=== PATIENT | male | born 1980 | race Caucasian/White ===

== ENCOUNTER → 2017-02-12 | Outpatient (CLI) | payer BC, OTHER ==
[2017-02-12 10:09] LABS: BASOPHILS # (AUTO) 0.05 10*3/UL; BASOPHILS % (AUTO) 0.9 % (0-1); EOSINOPHILS # (AUTO) 0.27 10*3/UL; EOSINOPHILS % (AUTO) 4.7 % (0-8); HEMATOCRIT 53.5 % (42.0-52.0); HEMOGLOBIN 17.8 g/dL (14.0-18.0); LYMPHOCYTES # (AUTO) 1.67 10*3/uL; MEAN CORPUSCULAR HGB CONC 33.3 g/dL (33-37); MEAN CORPUSCULAR VOLUME 90.1 FL (80-90); MEAN PLATELET VOLUME 9.7 FL (7.4-12.2); MONOCYTES # (AUTO) 0.69 10*3/UL (0.3-0.8); MONOCYTES % (AUTO) 11.9 % (5-15); NEUTROPHILS % (AUTO) 53.5 % (50-80); RED BLOOD COUNT 5.94 10^6/uL (4.70-6.10)
[2017-02-12 10:17] LABS: PLATELET MORPHOLOGY COMMENT NORMAL MORPHOLOGY (NORM); RBC MORPHOLOGY COMMENT NORMAL MORPHOLOGY (NORM); WBC MORPHOLOGY COMMENT NORMAL MORPHOLOGY (NORM)
== END ==
LOC: LAB 09:46
PROVIDERS: ATTEND Internal Medicine
DX: D75.1 Secondary polycythemia (principal)
CPT/HCPCS: 36415; 85025

== ENCOUNTER → 2017-03-18 | Outpatient (CLI) | payer BC, OTHER | LOC: MOB LAB 14:27 | PROVIDERS: ATTEND Family Medicine | DX: L02.612 Cutaneous abscess of left foot (principal) | CPT/HCPCS: 87070; 87075; 87077; 87186; 87205 ==

== ENCOUNTER 2018-10-16 15:44 | Inpatient (IN) ==
[2018-10-16] MEDS ORDERED: Sodium Chloride 0.9% 1,000 ML PRIMARY IV ONE (15:51)
[2018-10-16] MEDS ORDERED: ASPIRIN 81 MG (BABY) CHEWABLE TABLET PO ONE (15:51)
--- NOTE | 2018-10-16 15:53 | EKG ---
[address] [address] Measurements Intervals [place] Rate: 74 P: 84 LA: 173 QRS: -39 QRSD: 111 T: 37 QT: 367 QTc: 394 Interpretive Statements SINUS RHYTHM LEFT AXIS DEVIATION MODERATE INTRAVENTRICULAR CONDUCTION DELAY Compared to ECG 01/21/2018 14:39:19 Left-axis deviation now present Intraventricular conduction delay now present Indeterminate axis no longer present Electronically Signed On 10-17-18 12:38:28 MST by Marcelo Begum [email or web address]
--- NOTE | 2018-10-16 15:59 | PDOC ---
Chest Pain HPI - General Chief Complaint: Chest Pain Stated Complaint: chest pain/left lung pain Date Seen by Provider: 10/16/18 Time Seen by Provider: 15:45 Source: Patient Exam Limitations: POSITIVE: No limitations Treatment Prior to Arrival: REPORTS: None Nurse's Notes Reviewed & Considered: Yes - History of Present Illness Initial Comments: The patient is a 37-year-old male who presents to the emergency department with left-sided chest pain. He states that he had onset of a pain in his left lower chest that radiates through to his back 2 days ago. This pain is worsened and sharp with taking a deep breath. He states that there has been constant pain to some degree for the past 2 days. He denies any lightheadedness, diaphoresis, cough, nausea or vomiting or any other associated complaints. He states that the pain is better after taking aspirin. He does have a history of heart disease and had a stent placed approximately a year ago for an MRI. He also has a history of blood clots. He has erythrocytosis and is due to have his blood tested tomorrow to see if he needs another therapeutic phlebotomy. - Patient Home Medications Home Medications: Home Medications albuterol sulfate HFA 90 mcg/actuation aerosol inhaler 2 puff INH Q4-6H PRN #1 device 01/03/18 atorvastatin 40 mg tablet 40 mg PO QDAY 01/03/18 Clopidogrel [Plavix] 75 mg PO DAILY 01/21/18 Metoprolol Succinate 25 mg PO BID 01/21/18 aspirin 81 mg tablet,delayed release 81 mg PO QDAY tab 02/10/18 Lisinopril 5 mg PO DAILY 10/16/18 - Patient Allergies Allergies/Adverse Reactions: Allergies Allergy/AdvReac Type Severity Reaction Status Date / Time No Known Allergies Allergy Verified 10/16/18 15:45 Past Medical History - heen HEENT History: Denies History Cardiovascular History: Previous SD, DVTs Additional Cardiovasular History: PT RECENTLY HAD LEFT LEG DVT. 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 Respiratory History: Denies History Gastrointestinal History: Denies History Genitourinary History: Denies History Endocrine History: Denies History Musculoskeletal History: Denies History Prosthesis or Implant: No Additional Musculoskeletal History: LEFT ARM SURGERY AFTER BREAKING IT DURING CHILDHOOD Neurological History: Denies History Blood Disorders: Other (please comment) Additional Blood Disorders History: ERYTHROCYTOSIS Psychiatric History: Denies History Cancer History: Denies History In Past Year Been Physically Harmed or Verbally Threatened: No History of MDRO: No Tobacco Use: Never Smoker Alcohol Use: None Type of alcohol normally used: Beer, Hard Liquor In the Past 12 Months, Have Used or Abuse Any Substance: None Previous Surgical History: Yes Type / Date of Surgery: LEFT ARM A CHILD-REMOVAL OF METAL Significant Family History: No pertinent family hx Past Medical History Reviewed: Reviewed - No Changes ROS - Limitations ROS Limitations: No Limitations Constitution: DENIES: Chills, Fever Cardiovascular: REPORTS: Chest Pain. DENIES: Heart Palpitations, Edema Respiratory: REPORTS: Hurts To Breathe. DENIES: Cough Non Productive, Cough Productive Neurological: REPORTS: Denies Neuro Symptoms Gastrointestinal: REPORTS: Denies GI Symptoms Endocrine: DENIES: Fatigue Musculoskeletal: REPORTS: Other (Some pain behind his left knee) Genitourinary: REPORTS: Denies Symptoms Eyes: REPORTS: Denies Symptoms ENT: REPORTS: Denies Symptoms Skin: DENIES: Rash Chest Pain PE - General Appearance General Appearance: REPORTS: Alert, Cooperative, No Acute Distress - HEENT HEENT: POSITIVE: Head Inspection Nml, Eyes Inspection Nml, Ears Inspection Nml, Pharynx Inspect. Nml - Neck Neck: REPORTS: Normal Inspection - Respiratory Respiratory: REPORTS: No Respiratory Distress, Breath Sounds Normal - Cardiovascular Cardiovascular: REPORTS: Regular Rate and Rhythm, Heart Sounds Normal Peripheral Pulses: Dorsalis-pedis (R): 2+, Dorsalis-pedis (L): 2+ - Abdomen Abdomen: Soft: (All Quadrants), Denies Tenderness: (All Quadrants) - Skin Skin: REPORTS: Intact, No Rash - Extremities Extremity: Normal ROM: (All Extremities), Normal Inspection: (All Extremities) - Neurological / Psychological Neurological: POSITIVE: Oriented X3, Motor Normal, Sensation Normal Chest Pain Progress - Results Reviewed by me Xrays/CTs/US Reviewed by me: Yes Discussed with Radiologist: Yes Radiology Findings: Initial venous Doppler of the left lower extremity revealed a clot in the popliteal region which according to the radiologist looked like it might be chronic as it appeared to be well organized and was in the same distribution as his previous DVT. CTA of the chest shows multiple pulmonary emboli with a small pulmonary infarct in the left lower lung Lab Results Reviewed by Me: Yes CBC and BMP: 10/16/18 16:00 10/16/18 16:00 Lab Results:: Laboratory Results 10/16/18 10/16/18 10/16/18 16:00 16:00 16:00 WBC 11.99 H RBC 5.80 Hgb 16.9 Hct 51.1 MCV 88.1 MCH 29.1 MCHC 33.1 RDW Std Deviation 44.8 RDW Coeff of Jeffrey 14.1 Plt Count 229 MPV 9.8 Immature Gran % (Auto) 0.3 Neut % (Auto) 67.6 Lymph % (Auto) 15.6 Geary % (Auto) 13.9 Eos % (Auto) 2.3 Baso % (Auto) 0.3 Immature Gran # (Auto) 0.03 Neut # (Auto) 8.11 Lymph # (Auto) 1.87 Geary # (Auto) 1.67 H Eos # (Auto) 0.28 Baso # (Auto) 0.03 WBC Morphology Comment Normal morphology Plt Morphology Comment Normal morphology RBC Morph Comment Normal morphology D-Dimer 1.02 H Sodium 136 Potassium 3.9 Chloride 106 Carbon Dioxide 23 Anion Gap 7 BUN 11 Creatinine 0.9 Estimated GFR > 60 BUN/Creatinine Ratio 12.22 Glucose 96 Calculated Osmolality 280.0 Calcium 8.7 Total Bilirubin 0.8 AST 23 ALT 34 Alkaline Phosphatase 91 CK-MB (CK-2) Troponin I C-Reactive Protein 3.5 H NT-Pro-B Natriuret Pep 35.0 Total Protein 7.2 Albumin 4.2 Globulin 3.1 Albumin/Globulin Ratio 1.30 10/16/18 16:00 WBC RBC Hgb Hct MCV MCH MCHC RDW Std Deviation RDW Coeff of Jeffrey Plt Count MPV Immature Gran % (Auto) Neut % (Auto) Lymph % (Auto) Geary % (Auto) Eos % (Auto) Baso % (Auto) Immature Gran # (Auto) Neut # (Auto) Lymph # (Auto) Geary # (Auto) Eos # (Auto) Baso # (Auto) WBC Morphology Comment Plt Morphology Comment RBC Morph Comment D-Dimer Sodium Potassium Chloride Carbon Dioxide Anion Gap BUN Creatinine Estimated GFR BUN/Creatinine Ratio Glucose Calculated Osmolality Calcium Total Bilirubin AST ALT Alkaline Phosphatase CK-MB (CK-2) 0.47 Troponin I < 0.012 C-Reactive Protein NT-Pro-B Natriuret Pep Total Protein Albumin Globulin Albumin/Globulin Ratio EKG Interpreted/Reviewed By Me:: Yes EKG Interpretation:: POSITIVE: Normal Sinus Rhythm, Normal Rate, Normal QRS, Normal ST/T - Patient's Progress MDM / ED Course: The patient's clinical presentation is consistent with pleurisy. His vital signs are all unremarkable and his initial EKG shows normal sinus rhythm with no acute ST segment or T-wave changes. He had already taken aspirin. His chest x -ray showed no acute findings. His lab work was all unremarkable with the exception of an elevated d-dimer at 1.0. A CTA of the chest was ordered however was delayed somewhat because of malfunction of the CT. An ultrasound of the left lower extremity was ordered secondary to his popliteal pain. This did show evidence of DVT in the popliteal region which may have been which may have been older per radiologist. Because of the evidence of DVT he was started on request 10 mg by mouth. The CT machine started functioning properly and a CTA of the chest was obtained. This actually showed multiple pulmonary emboli in the lung bases and a small pulmonary infarct in the left lower lung which likely explains his current pain. Because of the multiple PEs and DVT Dr. Landry was contacted for admission. He has agreed to admit the patient and the patient and his is in agreement with this plan. - Consult Counseled: POSITIVE: Patient, Family, RE: Lab Results, RE: Radiology Results, RE: DX Patient Care Time - Estimated PCT Patient Care Time (In Minutes): 35 Vital Signs - Recent Vital Signs Vital Signs: Vital Signs (Last 8 hours) Temp Pulse Pulse Resp BP Pulse Ox 10/16/18 15:51 73 10/16/18 15:44 97.0 F 77 18 108/78 94 - VS Reviewed Vital Signs Reviewed: Yes Discharge Clinical Impression: Multiple pulmonary emboli, Left leg DVT Discharge Disposition: Admit to Inpatient Condition: Fair Date Decision to Admit to Inpatient: 10/16/18 Time Decision to Admit to Inpatient: 19:25
[2018-10-16 16:03] LABS: BASOPHILS # (AUTO) 0.03 10*3/UL; BASOPHILS % (AUTO) 0.3 % (0-1); EOSINOPHILS # (AUTO) 0.28 10*3/UL; EOSINOPHILS % (AUTO) 2.3 % (0-8); Hematocrit [HCT] 51.1 % (42.0-52.0); Hemoglobin [HGB] 16.9 g/dL (14.0-18.0); LYMPHOCYTES # (AUTO) 1.87 10*3/uL; MEAN CORPUSCULAR HEMOGLOBIN 29.1 PG (27-31); MEAN CORPUSCULAR HGB CONC 33.1 g/dL (33-37); MEAN CORPUSCULAR VOLUME 88.1 FL (80-90); MEAN PLATELET VOLUME 9.8 FL (7.4-12.2); MONOCYTES # (AUTO) 1.67 10*3/UL (0.3-0.8); MONOCYTES % (AUTO) 13.9 % (5-15); NEUTROPHILS # (AUTO) 8.11 10*3/UL; NEUTROPHILS % (AUTO) 67.6 % (50-80)
[2018-10-16 16:18] LABS: BLOOD UREA NITROGEN 11 mg/dL (7-22); BUN/CREATININE RATIO 12.22 (6-20); SERUM ALBUMIN 4.2 g/dL (3.5-4.8)
[2018-10-16 16:19] LABS: PLATELET MORPHOLOGY COMMENT NORMAL MORPHOLOGY (NORM); RBC MORPHOLOGY COMMENT NORMAL MORPHOLOGY (NORM); WBC MORPHOLOGY COMMENT NORMAL MORPHOLOGY (NORM)
--- NOTE | 2018-10-16 17:23 | DI ---
AP CHEST X-RAY, 10/16/2018 3:51 PM : Clinical History: Chest pain. Previous Exam: 01/21/2018. Soft Tissues: No acute soft tissue abnormality. Bones: Normal. Heart: On this view, the patient took a shallow inspiration. There is still cardiomegaly even for thi s shallow inspiratory effort. The vessels are more plethoric and slightly hazier than on the prior ex am consistent with mild CHF. Lungs: No infiltrate. Small left pleural effusion. Mediastinum: Normal mediastinum. Nodules: No pulmonary nodules. Reading: Cardiomegaly with mild CHF and a small left pleural effusion.
[2018-10-16] MEDS ORDERED: Apixaban 5 MG TABLET PO ONE (17:43)
--- NOTE | 2018-10-16 17:43 | DI ---
VENOUS DOPPLER ULTRASOUND OF THE LEFT LOWER EXTREMITY, 10/16/2018 4:36 PM: Clinical History: Left leg pain. Elevated D-dimer test. Previous Exam: 11/28/2015; 12/25/2015. Technique: 2D real-time imaging and color Doppler ultrasound with compression and augmentation maneuv ers. Deep Venous System: Normal deep venous system from groin to Zana's canal. In the popliteal vein, cl ot is visible but it appears to be more echogenic than typically seen in acute clot. The patient had previous scans that demonstrated clot in this same location with some extension into the proximal lawanda f region. Superficial Venous System: Normal greater saphenous vein. Readin. There is clot present in the popliteal vein, but the appearance is more suggestive of a chronic o rganized clot rather than acute clot. The previous study showed clot in the same location. 2. The deep venous system from the groin to Zana's canal and the greater saphenous vein are normal .
--- NOTE | 2018-10-16 19:13 | DI ---
CT ANGIOGRAM OF THE CHEST, 10/16/2018 4:36 PM : Clinical History: Left-sided chest pain. Elevated D-dimer test. Previous Exam: None at this facility. Technique: Scans from base of neck to lung bases with IV contrast. Bolus tracking protocol was used f or timing the injection. Non-MIPS and MIPS sagittal/coronal images generated. IV Contrast: 75 mL of Isovue 370 Base of Neck: Normal. Nodes: Normal axillary, supraclavicular, mediastinal, and hilar lymph nodes. Heart: Normal. There may be metallic stents in the proximal and middle thirds of the LAD. Aorta: The ascending aorta is ectatic with AP and transverse measurements of 38 x 34 mm. No dissectio n is noted. Pulmonary Arteries: Clots are visible in branches to the right middle lobe and both lower lobes with an associated pleural-based patchy infiltrate in the laterobasal segment of the left lower lobe. Lungs: The infiltrate in the laterobasal segment is consistent with a small pulmonary infarct. There is a small left pleural effusion. Nodules: There is a 4 mm noncalcified nodule in the medial segment of the right middle lobe anteriorl y and a noncalcified 2 mm nodule in the peripheral aspect of the left posterobasal segment. No follow up is required if this patient is low risk for developing lung cancer. Optionally0, a noncontrast fol lowup study in 12 months can be performed if this patient is considered to be of high-risk for develo ping lung cancer. Bony Structures: Normal visualized portions of ribs, sternum, scapulae, clavicles, and shoulders. Nor mal visualized portions of thoracic spine. Limited Upper Abdomen: Normal adrenal glands and spleen. Hepatomegaly with mild fatty infiltration. READIN. Pulmonary emboli are visualized in the lower lobes and the the right middle lobe with a small pul monary infarct in the laterobasal segment of the left lower lobe. Small left pleural effusion. 2. Small noncalcified nodules are present in the right middle lobe and left lower lobe. No followup required if the patient is low risk for developing lung cancer. If the patient is considered to be hi gh-risk, then an optional followup [address] scan can be performed. 3. Probable stents in the LAD. 4. Hepatomegaly with mild fatty infiltration.
--- NOTE | 2018-10-16 19:50 | PDOC ---
HPI - History of Present Illness Date of Service: 10/16/18 Time of Service: 08:35 Chief Complaint: Left-sided chest pain of 2 days' duration History of Present Illness: This is a 37 years old male with medical history significant for history of DVT in 2016 was on Coumadin for 90 days, history of coronary artery disease with previous 2 stents, history of erythrocytosis of unclear reason who came into the hospital with history of pain felt in the left side of the chest. Started on Wednesday got worse yesterday worse with taking deep breath. Also shortness of breath when walking up the stairs. Because of all the symptoms he came into the ER. Evaluation in the ER showed presence of PE. He did have ultrasound of his leg and that showed likely an old clots in the left leg. There is no history of leh swelling and he did say he had some discomfort at the back of the left knee. Past Medical History Medical History: 1. History of DVT in 2016. 2. History of coronary artery disease with previous 2 stents to LAD in August 2017. 3. History of erythrocytosis Surgical History: Surgery for removal of foreign body left arm. Family History: Reviewed an Not Pertinent Pertinent Family History: He is unsure about the family history on the dad side as he is adopted. On his mother's side there is history of diabetes no history of coronary artery disease as far as he know. Past Social History: Doesn't smoke, occasionally drinks no drugs. Tobacco Use: Never Smoker In the Past 12 Months, Have Used or Abuse Any of the Following Substance: None Alcohol Use: Occasionally Medication / Allergies Home Medications: Home Medications Medication Instructions Recorded Confirmed Type albuterol sulfate HFA 90 2 puff INH Q4-6H PRN #1 device 01/03/18 10/16/18 Rx mcg/actuation aerosol inhaler atorvastatin 40 mg tablet 40 mg PO QDAY 01/03/18 10/16/18 History Clopidogrel [Plavix] 75 mg PO DAILY 01/21/18 10/16/18 History Metoprolol Succinate 25 mg PO BID 01/21/18 10/16/18 History aspirin 81 mg tablet,delayed 81 mg PO QDAY tab 02/10/18 10/16/18 History release Lisinopril 5 mg PO DAILY 10/16/18 10/16/18 History Allergies/Adverse Reactions: Allergies Allergy/AdvReac Type Severity Reaction Status Date / Time No Known Allergies Allergy Verified 10/16/18 15:45 Review of Systems - Review of Systems All Systems: Reviewed & No Additional Complaints Except as Stated Exam - Vitals Vital Signs: Vital Signs Temperature 97.0 F Temperature Source Temporal Artery Scan Pulse Rate [Telemetry] 77 Pulse Rate 73 Respiratory Rate 18 Blood Pressure [Left Arm] 108/78 Pulse Ox 94 Oxygen Delivery Method Room Air Height 6 ft 1 in Weight 205 lb - General General Appearance: No Acute Distress, Cooperative - Head Head Exam: Normal Inspection - Eye Eye Exam: POSITIVE: Normal Appearance - ENT ENT Exam: POSITIVE: Normal Exam - Neck Neck Exam: Normal Inspection - Respiratory Respiratory Exam: POSITIVE: Clear to Auscultation - Bilaterally - Cardiovascular Cardiovascular Exam: POSITIVE: RRR - GI/Abdominal GI/Abdominal Exam: POSITIVE: Normal Bowel Sounds, Non Tender, Non Distended, Soft, No Organomegaly - Rectal Rectal Exam: POSITIVE: Deferred - External Exam: POSITIVE: Deferred Exam: POSITIVE: Deferred - Extremities Extremities Exam: POSITIVE: Normal Inspection - Back Back Exam: POSITIVE: Normal Inspection - Neurological Neurological Exam: POSITIVE: Alert, Oriented x 3, CN II-XII Intact, Speech Intact / Clear, Moves All Extremities Equally - Psychiatric Psychiatric Exam: POSITIVE: Normal Affect Results - Labs CBC and BMP: 10/16/18 16:00 10/16/18 16:00 - EKG Data -: EKG Interpreted by Me (Showed normal rhythm with incomplte RBBB) - Imaging Status: Report Reviewed by Me (CT chest 1. Pulmonary emboli are visualized in the lower lobes and the the right middle lobe with a small pulmonary infarct in the laterobasal segment of the left lower lobe. Small left pleural effusion. 2. Small noncalcified nodules are present in the right middle lobe and left lower lobe. No followup required if the patient is low risk for developing lung cancer. If the patient is considered to be high-risk, then an optional followup [address] scan can be performed. 3. Probable stents in the LAD. 4. Hepatomegaly with mild fatty infiltration. US legs . There is clot present in the popliteal vein, but the appearance is more suggestive of a chronic organized clot rather than acute clot. The previous study showed clot in the same location. 2. The deep venous system from the groin to Zana's canal and the greater saphenous vein are normal.) Assessment and Plan - Patient Problems (1) Pulmonary embolism and infarction Current Visit: Yes Status: Acute Comment: He did receive eliquis will continue with that. I did tell him that he likely needs to be on lifelong anticoagulation because of the fact that he had previous DVT before. Etiology is unclear. he has a history of both arterial and venous thromboses likely the polycythemia is contributing to the etiology. They cause of the polycythemia based on what he told me is unclear. Suggested going to the [facility] for further testing. He said that his son has high iron, so probably has hemochromatosis. The patient himself said that he doesn't have hemochromatosis. I don't see in the previous tests that he had that he ferritin checked or iron panel nor he had tests for hemochromatosis that I can see. So I will check a ferritin and iron panel if both abnormal will send for hemochromastosis gene. Code(s): I26.99 - Other pulmonary embolism without acute cor pulmonale (2) History of coronary artery disease Current Visit: Yes Status: Acute Comment: We'll continue with his previous medication except Plavix. I spoke with the plastics worker continuous still operator Dr. Schultz at [facility] and he said since the patient will be started on eliquis and he is more than 1 year post stent insertion will DC the Plavix and continue with aspirin. Code(s): Z86.79 - Personal history of other diseases of the circulatory system
[2018-10-16] MEDS ORDERED: LIDOCAINE W/ SODIUM BICARB 0.5 ML SYR SUBD PRN (20:17)
[2018-10-16] MEDS ORDERED: HYDROcodone-APAP 5 MG -325 MG TABLET PO PRN (20:33)
[2018-10-16] MEDS ORDERED: HYDROcodone-APAP 10 MG-325 MG TABLET PO PRN (22:17)
[2018-10-16] MEDS: MORPHINE SULFATE 2 MG/1 ML IVP PRN (22:30)
[2018-10-17 05:45] LABS: BASOPHILS # (AUTO) 0.02 10*3/UL; BASOPHILS % (AUTO) 0.2 % (0-1); EOSINOPHILS # (AUTO) 0.18 10*3/UL; EOSINOPHILS % (AUTO) 1.6 % (0-8); Hematocrit [HCT] 49.1 % (42.0-52.0); Hemoglobin [HGB] 15.7 g/dL (14.0-18.0); LYMPHOCYTES # (AUTO) 1.62 10*3/uL; MEAN CORPUSCULAR HEMOGLOBIN 28.6 PG (27-31); MEAN CORPUSCULAR VOLUME 89.4 FL (80-90); MEAN PLATELET VOLUME 10.2 FL (7.4-12.2); MONOCYTES # (AUTO) 1.24 10*3/UL (0.3-0.8); MONOCYTES % (AUTO) 10.9 % (5-15); NEUTROPHILS # (AUTO) 8.32 10*3/UL; NEUTROPHILS % (AUTO) 72.9 % (50-80); RED BLOOD COUNT 5.49 10^6/uL (4.70-6.10)
[2018-10-17] MEDS: Apixaban 5 MG TABLET PO SCH ×2 (05:49→17:44)
[2018-10-17] MEDS ORDERED: Apixaban 5 MG TABLET PO SCH ×2 (05:55→09:00)
[2018-10-17 06:01] LABS: PLATELET MORPHOLOGY COMMENT NORMAL MORPHOLOGY (NORM); RBC MORPHOLOGY COMMENT NORMAL MORPHOLOGY (NORM); WBC MORPHOLOGY COMMENT NORMAL MORPHOLOGY (NORM)
[2018-10-17] MEDS: MORPHINE SULFATE 2 MG/1 ML IVP PRN (07:55)
[2018-10-17] MEDS ORDERED: CLOPIDOGREL 75 MG TABLET PO SCH (09:00)
[2018-10-17] MEDS ORDERED: ATORVASTATIN 40 MG TABLET PO SCH ×3 (09:00→21:00)
[2018-10-17] MEDS: METOPROLOL SUCCINATE 25 MG SR 24H TABLET PO SCH (09:07)
[2018-10-17] MEDS: ASPIRIN EC 81 MG TABLET PO SCH (09:07)
[2018-10-17] MEDS: LISINOPRIL 5 MG TABLET PO SCH (09:07)
--- NOTE | 2018-10-17 10:24 | PDOC(PROG) ---
Date of Service: 10/17/18 Time of Service: 10:20 Interval History: Complains of sharp, pleuritic pain. No nausea or vomiting. Still somewhat short of breath. Objective : Data - Labs CBC and BMP: 10/17/18 05:00 10/16/18 16:00 Additional Lab Results: 10/17/18 10/17/18 10/17/18 05:00 05:00 05:00 Iron 44 L TIBC 403 % Saturation 0 L Ferritin 27.90 Troponin I < 0.012 Objective : Exam - General General Appearance: No Acute Distress, Cooperative Additional General Exam Details: Vital Signs - Last Taken Temperature 97.8 F 10/17/18 08:33 Pulse Rate 80 10/17/18 08:33 Respiratory Rate 16 10/17/18 08:33 Blood Pressure 119/69 10/17/18 08:33 Pulse Ox 94 10/17/18 08:33 - Eye Eye Exam: No Scleral Icterus - ENT ENT Exam: Mucous Membranes Moist - Respiratory Respiratory Exam: Clear to Auscultation - Bilaterally, Breathing Non Labored - Cardiovascular Cardiovascular Exam: RRR, No Murmur, No Clicks, No Gallops, No Rubs, No JVD - GI/Abdominal GI/Abdominal Exam: Normal Bowel Sounds, Non Tender, Non Distended, Soft - Extremities Extremities Exam: No Clubbing Present, No Edema Present, No Cyanosis Present - Neurological Neurological Exam: Alert, Oriented x 3, No Facial Droop, Speech Intact / Clear, Moves All Extremities Equally Assessment and Plan - Patient Problems (1) Pulmonary embolism and infarction Current Visit: Yes Status: Acute Code(s): I26.99 - Other pulmonary embolism without acute cor pulmonale (2) History of coronary artery disease Current Visit: Yes Status: Acute Code(s): Z86.79 - Personal history of other diseases of the circulatory system - Assessment / Plan Additional Assessment/Plan Details: Continue Eliquis for treatment of PE. I recommended lifetime treatment based on this being the patient's second event. Change medications for acute pain related to pulmonary infarction to Percocet and also Toradol. We'll start incentive spirometry to see if that will help the patient is well and hopefully prevent any pneumonia. Patient would benefit from continued hematology/oncology follow-up. He is iron deficient. I think the patient should go ahead and just proceed with a full/formal sleep study. I recommended that be considered as an outpatient. We spoke a lot about the difference between the coagulation cascade and platelet cascade in terms of clot formation. Probably here overnight.
[2018-10-17] MEDS: oxyCODONE/APAP 10/325 Tab 1 EACH TAB PO PRN ×3 (10:51→22:47)
[2018-10-17] MEDS: KETOROLAC 15 MG/1 ML VIAL IVP PRN ×3 (10:52→22:47)
[2018-10-18] MEDS: KETOROLAC 15 MG/1 ML VIAL IVP PRN (05:05)
[2018-10-18] MEDS: oxyCODONE/APAP 10/325 Tab 1 EACH TAB PO PRN (05:06)
[2018-10-18] MEDS: Apixaban 5 MG TABLET PO SCH (05:39)
[2018-10-18 08:00] VITALS: O2SAT 92
[2018-10-18 08:44] VITALS: BP 117/72; RESP 16; TEMP 97.2
[2018-10-18] MEDS: LISINOPRIL 5 MG TABLET PO SCH (08:49)
[2018-10-18] MEDS: ASPIRIN EC 81 MG TABLET PO SCH (08:49)
[2018-10-18] MEDS: METOPROLOL SUCCINATE 25 MG SR 24H TABLET PO SCH (08:49)
--- NOTE | 2018-10-18 11:01 | DCSUMMARY ---
Hospitalization Summary Admit Date: 10/16/2017 Discharge Date: 10/18/18 Primary Diagnosis:: acute pulmonary emboli, bilateral Secondary Diagnosis:: Polycythemia of unclear etiology Hospital Course: This very pleasant 37-year-old male who's had polycythemia of unclear etiology for some time now. He came in with acute onset of chest pain and shortness of breath. He was found to have bilateral PEs with a small pulmonary infarct. He was placed on Eliquis, and after better control of pleuritic pain is now ready to go home. He denies any significant chest pain or shortness breath today. He did not meet criteria for submassive pulmonary emboli and thus was treated with Eliquis here versus being sent for any thrombectomy evaluation. He already follows oncology so we did have him set up for an outpatient appointment this at 3:30 PM. There were no other complications with his polycythemia and he did not require phlebotomy while here. He did not require oxygen for his blood clot. His PESI score was 49. Assessment and Plan: 1. As per discharge assessments noted 2. Disposition: home 3. Condition on discharge, stable and improved. 4. Diet: regular diet 5. Activities: resume normal activities 6. Follow-Up: 1. Dr. Stanford in one week to recheck eliquis therapy 2. Dr. Greenberg to review blood clot. 7. Medications at the Time of Discharge: Home Medications Medication Instructions Recorded Confirmed Type albuterol sulfate HFA 90 2 puff INH Q4-6H PRN #1 device 01/03/18 10/16/18 Rx mcg/actuation aerosol inhaler atorvastatin 40 mg tablet 40 mg PO QDAY 01/03/18 10/16/18 History Metoprolol Succinate 25 mg PO BID 01/21/18 10/16/18 History aspirin 81 mg tablet,delayed 81 mg PO QDAY tab 02/10/18 10/16/18 History release Lisinopril 5 mg PO DAILY 10/16/18 10/16/18 History Apixaban [Eliquis] 5 mg PO BID #70 tablet 10/18/18 Rx oxyCODONE/APAP 10/325 Tab 1 - 2 each PO Q4H PRN #30 tab 10/18/18 Rx [Percocet 10/325 Tab] 8. Time, care, counseling and coordination of care for this discharge is greater than 30 minutes. Exam - Vitals Vital Signs: Vital Signs Temperature 97.2 F Temperature Source Temporal Artery Scan Pulse Rate [Pulse Oximeter] 65 Pulse Rate [Telemetry] 72 Pulse Rate 52 Respiratory Rate 16 Blood Pressure [Left Arm] 117/72 Pulse Ox 92 Oxygen Flow Rate 2 Oxygen Delivery Method Room Air Height 6 ft 1 in Weight 210 lb 3.2 oz - General General Appearance: No Acute Distress, Cooperative - Eye Eye Exam: POSITIVE: No Scleral Icterus - Neck Neck Exam: JVP is not Raised - Respiratory Respiratory Exam: POSITIVE: Clear to Auscultation - Bilaterally, Breathing Non Labored - Cardiovascular Cardiovascular Exam: POSITIVE: RRR, No Murmur, No Clicks, No Gallops, No Rubs, No JVD - GI/Abdominal GI/Abdominal Exam: POSITIVE: Normal Bowel Sounds, Non Tender, Non Distended, Soft - Extremities Extremities Exam: POSITIVE: No Clubbing Present, No Edema Present, No Cyanosis Present - Neurological Neurological Exam: POSITIVE: Alert, Oriented x 3, No Facial Droop, Speech Intact / Clear, Moves All Extremities Equally Data Peritnent Studies: 10/16/18 10/16/18 10/16/18 16:00 16:00 16:00 WBC Hgb Hct Plt Count D-Dimer 1.02 H Sodium 136 Potassium 3.9 Chloride 106 Carbon Dioxide 23 Anion Gap 7 BUN 11 Creatinine 0.9 BUN/Creatinine Ratio 12.22 Glucose 96 Calculated Osmolality 280.0 Calcium 8.7 Iron TIBC % Saturation Ferritin Troponin I < 0.012 C-Reactive Protein 3.5 H NT-Pro-B Natriuret Pep 35.0 Total Protein 7.2 Albumin 4.2 Globulin 3.1 Albumin/Globulin Ratio 1.30 10/17/18 10/17/18 10/17/18 05:00 05:00 05:00 WBC 11.40 H Hgb 15.7 Hct 49.1 Plt Count 218 D-Dimer Sodium Potassium Chloride Carbon Dioxide Anion Gap BUN Creatinine BUN/Creatinine Ratio Glucose Calculated Osmolality Calcium Iron 44 L TIBC 403 % Saturation 0 L Ferritin 27.90 Troponin I C-Reactive Protein NT-Pro-B Natriuret Pep Total Protein Albumin Globulin Albumin/Globulin Ratio 10/17/18 05:00 WBC Hgb Hct Plt Count D-Dimer Sodium Potassium Chloride Carbon Dioxide Anion Gap BUN Creatinine BUN/Creatinine Ratio Glucose Calculated Osmolality Calcium Iron TIBC % Saturation Ferritin Troponin I < 0.012 C-Reactive Protein NT-Pro-B Natriuret Pep Total Protein Albumin Globulin Albumin/Globulin Ratio Patient Problems - Patient Problem List (1) Pulmonary embolism and infarction Current Visit: Yes Status: Acute Code(s): I26.99 - Other pulmonary embolism without acute cor pulmonale Category: Medical (2) History of coronary artery disease Current Visit: Yes Status: Acute Code(s): Z86.79 - Personal history of other diseases of the circulatory system Category: Medical (3) Polycythemia Current Visit: Yes Status: Acute Code(s): D75.1 - Secondary polycythemia Category: Medical (4) Iron deficiency anemia due to chronic blood loss Current Visit: Yes Status: Acute Comment: Probably from phlebotomy. Code(s): D50.0 - Iron deficiency anemia secondary to blood loss (chronic) Category: Medical
[2018-10-19 11:32] LABS: Cardiolipin Ab IgG <9.4 GPL; Cardiolipin Ab IgM <9.4 MPL
[2018-10-19 14:15] LABS: Anti Beta 2 Glycoprotein <9.4 U/mL
== END 2018-10-18 12:07 | disposition home or self-care (01) | DRG 176 ==
LOC: ER 15:44 → MED/SURG 19:33
PROVIDERS: ADMIT Internal Medicine; ATTEND Internal Medicine